=== PATIENT | female | born 1935 | race Caucasian/White ===

== ENCOUNTER 2016-11-25 20:45 | Emergency (ER) | payer OTHER ==
[~2016-11-25] VITALS: Ht 162.6 cm; Wt 108.1 kg
[~2016-11-25 20:45] MED LIST: ALPRAZOLAM0.25 M2 PO; ALPRAZOLAM0.5 MG; ALPRAZOLAM0.5 MG PO; ANTIVERT25 MG PO; ARICEPT10 MG PO; ASPERCREME 1035.4 GM TP; ASPIR 8181 M1 PO; ASPIRIN81 M1 PO; Antivert PO; Aspirin E.C. PO; BACLOFEN10 MG PO; BACTRIM,SEPT1 TABLET PO; BENADRYL25 MG PO; BENICAR20 MG; BENICAR20 MG PO; CALCIUM CITRAT1 EA13 PO; CITRACAL W/V1 TABLE1 PO; COUMADIN1 MG PO; COUMADIN2.5 MG PO; COUMADIN3 MG PO; COZAAR25 MG PO; Coumadin,Jantoven PO; Cozaar PO; DONEPEZIL HCL10 MG PO; DULCOLAX10 MG PR; DUONEB 2.5-0.5 M3 ML AEROSOL; EFFEXOR XR150 MG PO; ENTEREG12 MG PO; FEOSOL325 MG PO; FERROUS SULFAT325 MG PO; FLEET ENEMA-AD118 ML PR; GERI-LANTA LIQ355 ML PO; KEFLEX500 MG PO; KENALOG IN ORABA5 GM DT; LEVOTHYROXINE50 MCG PO; LOSARTAN POTASS25 MG PO; LOSARTAN POTASS50 MG PO; LOVENOX40 MG/0.4 SC; MAALOX ADVANCE355 ML PO; MECLIZINE HCL12.5 M1 PO; MECLIZINE HCL25 M3 PO; MECLIZINE HCL25 MG PO; MELATIN3 MG PO; MELATONIN3 MG PO; MELATONIN300 MCG PO; MELOXICAM7.5 MG PO; MICARDIS HCT1 TABLE2; MICARDIS HCT1 TABLE2 PO; MILK OF MAGN PO; MOBIC7.5 MG PO; NAPROXEN SODIU550 MG; NEXIUM40 M1 PO; NEXIUM40 MG PO; OMEPRAZOLE20 MG; OMEPRAZOLE20 MG PO; OMEPRAZOLE40 M1 PO; PERCOCET 5/31 TABLET PO; PHILLIPS'400 MG/5 M PO; PRILOSEC20 MG PO; PRILOSEC40 MG PO; PRISTIQ50 MG PO; Percocet 5/325,Endoc PO; QUETIAPINE FUMA50 MG PO; RESTORIL30 MG PO; ROXICET 5-3251 EACH PO; Restoril PO; SEROQUEL50 MG; SERTRALINE HCL50 MG PO; SYMBICORT60 INHALAT IH; TEMAZEPAM30 MG; TRAMADOL HCL50 MG PO; TYLENOL REGULA325 MG PO; VICODIN,LORT1 TABLET PO; Vicodin,Norco 5/325 PO; WARFARIN SODIU2.5 MG PO; XANAX0.25 MG PO; XANAX0.5 MG PO; Xanax PO; ZOLOFT50 MG
[2016-11-25 21:47] LABS: HEMATOCRIT 39.4 % (36.0-46.0); MCH 30.7 PG (29.0-34.0); MCHC 33.2 G/DL (30.0-36.0); MCV 92.3 FL (83-99); MEAN PLAT.VOLUME 9.6 uM^3 (9.5-12.4); PLATELET COUNT 222 K/uL (156-360); RBC DIS.WIDTH-CV 13.3 % (11.8-14.6); RBC DIS.WIDTH-SD 43.7 % (39-53); RED BLOOD COUNT 4.27 M/uL (3.80-5.20); WHITE BLOOD COUNT 6.7 K/uL (4.1-10.2)
[2016-11-25 21:57] LABS: CHLORIDE 103 mEq/L (99-109); POTASSIUM 3.9 mEq/L (3.7-5.4); SODIUM 138 mEq/L (136-147)
[2016-11-25 21:58] LABS: GLUCOSE 119 mg/dL (70-99)
[2016-11-25 22:00] LABS: ANION GAP 11 MEQ/L (2-14)
[2016-11-25 22:01] LABS: PROTHROMBIN TIME 10.5 (9.2-11.2); PTT 31.5 (25-32)
[2016-11-25 22:02] LABS: GFR ESTIMATE (CALCULATED) > 59 mL/min/
[2016-11-25 22:03] LABS: UREA NITROGEN (BUN) 13 mg/dL (9-23)
[2016-11-25 22:07] LABS: TROP-I INTERPRETATION NEGATIVE; TROPONIN-I < 0.01 ng/mL (0.0-0.30)
[2016-11-25 23:23] LABS: TROP-I INTERPRETATION NEGATIVE; TROPONIN-I < 0.01 ng/mL (0.0-0.30)
[2016-11-26 01:35] VITALS: BP 97/57
== END 2016-11-26 01:36 ==
LOC: EME → EDBD 20:45 → EME 11-26 01:36
PROVIDERS: Emergency Medicine
DX: R07.9 Chest pain, unspecified (principal); J44.9 Chronic obstructive pulmonary disease, unspecified; E78.5 Hyperlipidemia, unspecified; I10 Essential (primary) hypertension; K21.9 Gastro-esophageal reflux disease without esophagitis; F03.90 Unspecified dementia, unspecified severity, without behavioral disturbance, psychotic disturbance, mood disturbance, and anxiety; Z86.718 Personal history of other venous thrombosis and embolism; Z79.01 Long term (current) use of anticoagulants
CPT/HCPCS: 71020; 80048; 84484; 85027; 85610; 85730; 93005; 99281; 99284